=== PATIENT | male | born 1970 | race Caucasian/White ===

== ENCOUNTER → 2020-02-16 | Outpatient (CLI) | payer BC | LOC: COL.RAD 08:44 | DX: K21.9 Gastro-esophageal reflux disease without esophagitis (principal) ==

== ENCOUNTER → 2020-02-19 | Outpatient (CLI) | payer BC | LOC: COL.RAD 08:06 | DX: K31.84 Gastroparesis (principal) | CPT/HCPCS: A9541 ==

== ENCOUNTER → 2020-08-16 | Outpatient (CLI) | payer BC | LOC: COL.RAD 07:42 | DX: K76.0 Fatty (change of) liver, not elsewhere classified (principal); N20.0 Calculus of kidney; Z98.890 Other specified postprocedural states | CPT/HCPCS: Q9967 ==

== ENCOUNTER → 2020-11-03 | Outpatient (CLI) | payer BC | LOC: COL.RAD 10-31 11:30 | DX: J32.9 Chronic sinusitis, unspecified (principal); Z86.16 Personal history of COVID-19 ==